=== PATIENT | female | born 1980 | race Caucasian/White ===

== ENCOUNTER 2019-12-09 13:30 | Emergency (ER) | payer OTHER ==
--- OUTSIDE RECORDS SUMMARY | 2019-12-09 13:59 | XMS REPORT | Continuity of Care Document ---
:1980 External Reference #:[id number] Author Name Michelle Lira N.P. (transmitted by agent of provider Paris Faria) Address [facility], [place] [address] Care Team Providers Name Role Phone Fannie Arshad MD - Care Team Information Technical Service Specialist Family Medicine Problems Description No Information Available Social History Type Date Description Comments Sex Unknown Tobacco Use Start: Unknown End: Former Cigarette Smoker Unknown Smoking Status Reviewed: 11/06/19 Former Cigarette Smoker Tobacco Use Start: Unknown End: Patient is a former smoker Unknown Exercise Type/Frequency Exercises regularly Allergies, Adverse Reactions, Alerts Active Allergies Reaction Severity Comments Date Codeine Hives 06/23/2019 Latex Hives 06/23/2019 Penicillin Nausea 06/23/2019 Bleomycin Nausea 06/23/2019 Medications Active Medications SIG Qnty Indications Ordering Date Provider Multivitamin Adult 1 by mouth every day Unknown Tablets Probiotic 1 by mouth every day Unknown Capsules Vitamin D 1 by mouth every day Unknown 2000Unit Tablets Vitamin B12 1 by mouth every day Unknown 100mcg Tablets Magnesium Citrate 4-6 tablets a day as Unknown 200mg needed for Tablets constipation Venlafaxine HCL 1 by mouth every day Unknown 75mg Tablets Gabapentin 1 by mouth three Unknown 100mg times a day Capsules Wellbutrin SR 1 by mouth every day Unknown 150mg Tablets ER 12HR Immunizations Description No Information Available Vital Signs Date Vital Result Comment 11/06/2019 10:54am Height 63 inches 5'3" Weight 127.12 lb Heart Rate 78 /min BP Systolic 101 mmHg BP Diastolic 61 mmHg O2 % BldC Oximetry 100 % BMI (Body Mass Index) 22.5 kg/m2 Last Menstrual Period [id number] 06/23/2019 10:17am Height 63 inches 5'3" Weight 118.00 lb Heart Rate 88 /min BP Systolic 103 mmHg BP Diastolic 68 mmHg O2 % BldC Oximetry 100 % BMI (Body Mass Index) 20.9 kg/m2 Last Menstrual Period [id number] Results Description No Information Available Procedures Description No Information Available Medical Devices Description No Information Available Encounters Type Date Location Provider Dx Diagnosis Office Visit 06/23/2019 [facility] Michelle Lira N.PSangeetha R10.2 Pelvic and 10:00a [facility] perineal pain R68.82 Decreased libido Assessments Date Code Description Provider 11/06/2019 R68.82 Decreased libido Michelle Lira N.P. 06/23/2019 R10.2 Pelvic and perineal pain Mathew RgPSangeetha 06/23/2019 R68.82 Decreased libido Michelle Lira N.P. Plan of Treatment 11/06/2019 - Michelle Lira N.P.R68.82 Decreased libidoComments:[address] [facility] 6: 00pm every second Saturday of the [employer] Functional Status Description No Information Available Mental Status Description No Information Available Referrals Description No Information Available
[2019-12-09 14:42] LABS: ABS Eosinophils 0.1 10^3/ul (0-0.6); ABS Lymphocytes 1.4 10^3/ul (1.0-4.8); ABS Monocytes 0.4 10^3/ul (0-0.8); ABS Neutrophils 4.1 10^3/ul (1.5-7.7); Eosinophil % 1.9 %; Hematocrit 39 % (35-47); Hemoglobin 13.3 g/dL (12.0-16.0); Mean Corpuscular HGB Conc 34 g/dL (31-36); Mean Corpuscular Hemoglobin 31 pg (27-31); Mean Corpuscular Volume 90 fL (80-97); Mean Platelet Volume 7.2 fL (7.4-10.4); Platelet Count 273 10^3/uL (150-450); Red Blood Count 4.36 10^6 /uL (3.70-4.87); Red Cell Distribution Width 14 % (10-15)
[2019-12-09 14:58] LABS: ALT 15 U/L (7-52); AST 21 U/L (13-39); Albumin 4.5 g/dL (3.2-5.2); Alkaline Phosphatase 87 U/L (34-104); Anion Gap 6 mmol/L (2-11); BUN/Creatinine Ratio 11.8 (8-20); Blood Urea Nitrogen 9 mg/dL (6-24); C Reactive Protein < 1.00 mg/L (<8.01); CO2 Carbon Dioxide 29 mmol/L (22-32); Calcium 9.2 mg/dL (8.6-10.3); Chloride 101 mmol/L (101-111); EGFR African American 101.5 (>60); EGFR Non-African American 83.9 (>60); Globulin 2.2 g/dL (2-4); Glucose 93 mg/dL (70-100); Sodium 136 mmol/L (135-145); Total Protein 6.7 g/dL (6.4-8.9)
--- NOTE | 2019-12-09 15:01 | ED ---
Respiratory - HPI Summary HPI Summary: 39 year old female presents with shortness of breath for the past week. States that her right side chest pain moved today. States that she has a pleural effusion that is suppose to follow up with dr patel tomorrow. 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 She denies any cough. No fevers. No sore throat. No abd pain. No nausea vomiting. Has never had this pain before. No family history of blood clots. Does have family history of COPD. Is nonsmoker. No history asthma or COPD for this person. - History of Current Complaint Chief Complaint: EDShortnessOfBreath Stated Complaint: R/O BLOOD CLOTT Time Seen by Provider: 12/09/19 14:44 Pain Intensity: 6 - Allergy/Home Medications Allergies/Adverse Reactions: Allergies Allergy/AdvReac Type Severity Reaction Status Date / Time bleomycin Allergy Anaphylatic Verified 12/09/19 13:36 Shock codeine Allergy Rash And Verified 12/09/19 13:36 Itching latex Allergy Difficulty Verified 12/09/19 13:36 Breathing Penicillins Allergy Rash Verified 12/09/19 13:36 Home Medications: Home Medications Cholecalciferol TAB* [Vitamin D TAB*] 1,000 units PO DAILY 12/09/19 [History Confirmed 12/09/19] Cyanocobalamin TAB* [Vitamin B12 TAB*] 500 mcg PO DAILY 12/09/19 [History Confirmed 12/09/19] Gabapentin CAP(*) [Neurontin 100 mg CAP(*)] 200 mg PO QID 12/09/19 [History Confirmed 12/09/19] L.acidoph,Paracasei, B.lactis [Probiotic] 1 each PO DAILY 12/09/19 [History Confirmed 12/09/19] Magnesium Oxide TAB* [MagOx 400 TAB*] 400 mg PO DAILY 12/09/19 [History Confirmed 12/09/19] Multivitamins/Minerals TAB* [Theragran/minerals TAB*] 1 tab PO DAILY 12/09/19 [ History Confirmed 12/09/19] Venlafaxine CAP (NF) [Effexor CAP (NF)] 75 mg PO DAILY 12/09/19 [History Confirmed 12/09/19] buPROPion SR TAB* [Wellbutrin SR TAB*] 150 mg PO DAILY 12/09/19 [History Confirmed 12/09/19] PMH/Surg Hx/FS Hx/Imm Hx Endocrine/Hematology History: Denies: Hx Anticoagulant Therapy Respiratory History: Denies: Hx Asthma Infectious Disease History: No Infectious Disease History: Denies: Traveled Outside the [place] in Last 30 Days - Family History Known Family History: Positive: Non-Contributory - Social History Substance Use Type: Reports: None Smoking Status (MU): Never Smoked Tobacco Review of Systems Negative: Fever Negative: Chest Pain Positive: Shortness Of Breath, Cough All Other Systems Reviewed And Are Negative: Yes Physical Exam Triage Information Reviewed: Yes Vital Signs On Initial Exam: Initial Vitals Temp Pulse Resp BP Pulse Ox 99.2 F 100 16 120/75 100 12/09/19 13:32 12/09/19 13:32 12/09/19 13:32 12/09/19 13:32 12/09/19 13:32 Vital Signs Reviewed: Yes Appearance: Positive: Well-Appearing Skin: Positive: Warm, Dry Head/Face: Positive: Normal Head/Face Inspection Eyes: Positive: Normal, Conjunctiva Clear ENT: Positive: Pharynx normal Respiratory/Lung Sounds: Positive: Clear to Auscultation, Breath Sounds Present , Other - tenderness on right side of chest wall Cardiovascular: Positive: Normal, RRR Abdomen Description: Positive: Nontender, Soft Bowel Sounds: Positive: Present Musculoskeletal: Positive: Normal Neurological: Positive: Normal Psychiatric: Positive: Normal Procedures - Sedation Patient Received Moderate/Deep Sedation with Procedure: No Diagnostics - Vital Signs Vital Signs Temp Pulse Resp BP Pulse Ox 12/09/19 13:32 99.2 F 100 16 120/75 100 - Laboratory Lab Results: Lab Results 12/09/19 12/09/19 Range/Units 14:22 14:22 WBC 6.0 (3.5-10.8) 10^3/uL RBC 4.36 (3.70-4.87) 10^6 /uL Hgb 13.3 (12.0-16.0) g/dL Hct 39 (35-47) % MCV 90 (80-97) fL MCH 31 (27-31) pg MCHC 34 (31-36) g/dL RDW 14 (10-15) % Plt Count 273 (150-450) 10^3/uL MPV 7.2 L (7.4-10.4) fL Neut % (Auto) 67.9 % Lymph % (Auto) 23.0 % [place] % (Auto) 6.6 % Eos % (Auto) 1.9 % Baso % (Auto) 0.6 % Absolute Neuts (auto) 4.1 (1.5-7.7) 10^3/ul Absolute Lymphs (auto) 1.4 (1.0-4.8) 10^3/ul Absolute Monos (auto) 0.4 (0-0.8) 10^3/ul Absolute Eos (auto) 0.1 (0-0.6) 10^3/ul Absolute Basos (auto) 0.0 (0-0.2) 10^3/ul Absolute Nucleated RBC 0.0 10^3/ul Nucleated RBC % 0.0 Sodium 136 (135-145) mmol/L Potassium 4.0 (3.5-5.0) mmol/L Chloride 101 (101-111) mmol/L Carbon Dioxide 29 (22-32) mmol/L Anion Gap 6 (2-11) mmol/L BUN 9 (6-24) mg/dL Creatinine 0.76 (0.51-0.95) mg/dL Est GFR ( Amer) 101.5 (>60) Est GFR (Non-Af Amer) 83.9 (>60) BUN/Creatinine Ratio 11.8 (8-20) Glucose 93 (70-100) mg/dL Calcium 9.2 (8.6-10.3) mg/dL Total Bilirubin 0.40 (0.2-1.0) mg/dL AST 21 (13-39) U/L ALT 15 (7-52) U/L Alkaline Phosphatase 87 (34-104) U/L Troponin I 0.00 (<0.03) ng/mL C-Reactive Protein < 1.00 (<8.01) mg/L Total Protein 6.7 (6.4-8.9) g/dL Albumin 4.5 (3.2-5.2) g/dL Globulin 2.2 (2-4) g/dL Albumin/Globulin Ratio 2.0 (1-3) Beta HCG, Quant Pending Result Diagrams: 12/09/19 14:22 12/09/19 14:22 Lab Statement: Any lab studies that have been ordered have been reviewed, and results considered in the medical decision making process. - EKG No standard instances Cardiac Rate: NL EKG Rhythm: Sinus Rhythm Summary of EKG Findings: sinus rhythm Disposition - Course Course Of Treatment: 39 year old female presents with shortness of breath for the past week. States that her right side chest pain moved today. States that she has a pleural effusion that is suppose to follow up with dr patel tomorrow. 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 States she's been in remission since 2000. She denies any cough. No fevers. No sore throat. No abd pain. No nausea vomiting. Has never had this pain before. No family history of blood clots. Does have family history of COPD. Is nonsmoker. No history asthma or COPD for this person. On exam has reproducible chest pain. wbc normal. crp normal. troponin zero. patient will be signed out to [facility] pending CTA. - Differential Dx - Cardiopulmonary Differential Diagnoses - Cardiopulmonary: Pulmonary Edema, Pulmonary Embolism, Other - chest wall - Diagnoses Provider Diagnoses: Atypical chest pain Discharge ED - Sign-Out/Discharge Documenting (check all that apply): Sign-Out Patient Signing out patient TO: Kennedy Hendrickson - Discharge Plan Condition: Stable Referrals: Fannie Arshad MD [Primary Care Provider] - - Billing Disposition and Condition Condition: STABLE - Attestation Statements Provider Attestation: I was available for consultation for this patient. I did not evaluate the patient or participate in any medical decision making or disposition decisions unless I am specifically named in the chart as having consulted on the patient. If I have consulted on the patient, please see my own ED note on the patient encounter. Kevin Miller MD
[2019-12-09 15:04] LABS: HCG Pregnancy < 0.60 mIU/mL
[2019-12-09] MEDS: Iohexol 350* (CONTRAST) 500 ML MDV IV ONE (17:26)
--- NOTE | 2019-12-09 18:26 | ED ---
Progress - Progress Note Progress Note: "39 year old female presents with shortness of breath for the past week. States that her right side chest pain moved today. States that she has a pleural effusion that is suppose to follow up with dr bhatti tomorrow. 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 States she's been in remission since 2000. She denies any cough. No fevers. No sore throat. No abd pain. No nausea vomiting. Has never had this pain before. No family history of blood clots. Does have family history of COPD. Is nonsmoker. No history asthma or COPD for this person. " - Matilda Alonso This patient was signed out to me at 1730 by CHRIS Lyles pending results of CTA of the chest for evaluation for possible pulmonary embolism. CTA returned showing no evidence of aortic dissection or pulmonary embolism. Patient stable Patient discharged home with outpatient follow-up with Dr Bhatti. Course/Dx - Course Course Of Treatment: 39 year old female presents with shortness of breath for the past week. States that her right side chest pain moved today. States that she has a pleural effusion that is suppose to follow up with dr bhatti tomorrow. 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 States she's been in remission since 2000. She denies any cough. No fevers. No sore throat. No abd pain. No nausea vomiting. Has never had this pain before. No family history of blood clots. Does have family history of COPD. Is nonsmoker. No history asthma or COPD for this person. On exam has reproducible chest pain. wbc normal. crp normal. troponin zero. patient will be signed out to [facility] pending CTA. - Diagnoses Provider Diagnoses: Atypical chest pain Discharge ED - Sign-Out/Discharge Documenting (check all that apply): Patient Departure - Discharge Plan Condition: Stable Disposition: HOME Patient Education Materials: Dyspnea (ED) Referrals: Fannie Arshad MD [Primary Care Provider] - Nedra Bhatti MD [Medical Doctor] - 1 Day Additional Instructions: Please follow up with Dr. Bhatti tomorrow for further evaluation and management. Please return to this emergency Department immediately if you develop any new or worsening symptoms. - Billing Disposition and Condition Condition: STABLE Disposition: Home - Attestation Statements Provider Attestation: I was available for consultation for this patient. I did not evaluate the patient or participate in any medical decision making or disposition decisions unless I am specifically named in the chart as having consulted on the patient. If I have consulted on the patient, please see my own ED note on the patient encounter. Kevin Miller MD
[2019-12-09 18:40] VITALS: BP 119/67
== END 2019-12-09 18:39 | disposition home or self-care (01) ==
LOC: ED 13:30
DX: R07.89 Other chest pain (principal); Z79.899 Other long term (current) drug therapy; Z88.0 Allergy status to penicillin; Z88.5 Allergy status to narcotic agent; Z88.8 Allergy status to other drugs, medicaments and biological substances; Z91.040 Latex allergy status
CPT/HCPCS: 36415; 71275; 80053; 84484; 84702; 85025; 86140; 93005; 99283; Q9967